=== PATIENT | male | born 1960 | race Caucasian/White ===

== ENCOUNTER 2019-09-13 19:22 | Inpatient (IN) | payer BC ==
[~2019-09-13] VITALS: Ht 177.8 cm; Wt 79.5 kg
[2019-09-13] MEDS ORDERED: normal saline 1000ML IV soln IVB ONE (20:30)
[2019-09-13] MEDS ORDERED: LIDOcaine 2% 10ml TOPICAL JELLY (Urojet) MM ONE (20:30)
[2019-09-13 20:51] LABS: CLARITY,URINE TURBID (Clear); COLOR,URINE RED (Yellow)
[2019-09-13 20:53] LABS: UA COLLECTION TYPE CLN CATCH MIDSTREAM
[2019-09-13 21:03] LABS: BACTERIA,URINE NONE SEEN /HPF (Neg); MUCUS STRANDS NONE SEEN /LPF (Neg); RBC,URINE TNTC /HPF (0-2); SQUAMOUS EPITHELIAL CELL,UR NONE SEEN /LPF (FEW); WBC,URINE 0-4 /HPF (0-4)
[2019-09-13 21:06] LABS: BASOPHILS # (AUTO) 0.1 X10'3 (0-0.2); BASOPHILS % (AUTO) 0.7 % (0-1); EOSINOPHILS # (AUTO) 0.2 X10'3 (0-0.9); EOSINOPHILS % (AUTO) 2.3 % (0-6); HEMATOCRIT 42.7 % (42.0-52.0); HEMOGLOBIN 14.7 g/dl (14.0-17.9); LYMPHOCYTES # (AUTO) 2.2 X10'3 (1.1-4.8); LYMPHOCYTES % (AUTO) 24.5 % (21-51); MEAN CORPUSCULAR HEMOGLOBIN 31.1 PG (27.0-31.0); MEAN CORPUSCULAR HGB CONC 34.3 g/dL (33.0-36.5); MEAN CORPUSCULAR VOLUME 90.7 FL (78-98); MONOCYTES # (AUTO) 0.8 X10'3 (0-0.9); MONOCYTES % (AUTO) 8.4 % (2-12); NEUTROPHILS # (AUTO) 5.9 X10'3 (1.8-7.7); NEUTROPHILS % (AUTO) 64.1 % (42-75); PLATELET COUNT 209 X10'3 (140-440); RED BLOOD COUNT 4.71 X10'6 (4.70-6.10); RED CELL DISTRIBUTION WIDTH 12.8 % (11.5-14.5); WHITE BLOOD COUNT 9.2 X10'3 (4.5-11.0)
[2019-09-13 21:12] LABS: PARTIAL THROMBOPLASTIN TIME 27 SECONDS (22-32)
[2019-09-13 21:14] LABS: ALANINE AMINOTRANSFERASE 20 U/L (12-78); ALBUMIN 3.8 G/DL (3.4-5.0); ALBUMIN/GLOBULIN RATIO 1.2 (1.1-1.5); ALKALINE PHOSPHATASE 79 IU/L (46-116); ANION GAP 8 (8-16); ASPARTATE AMINO TRANSFERASE 20 U/L (10-37); BILIRUBIN,TOTAL 0.3 MG/DL (0.1-1.0); BLOOD UREA NITROGEN 11 MG/DL (7-18); BUN/CREATININE RATIO 9.5 (5.4-32.0); CALCIUM 8.2 MG/DL (8.5-10.1); CHLORIDE 103 MMOL/L (99-107); CREATININE 1.16 MG/DL (0.60-1.10); GLUCOSE 78 MG/DL (70-104); SODIUM 140 MMOL/L (135-145); TOTAL CARBON DIOXIDE 29.1 MMOL/L (24-32); TOTAL PROTEIN 7.1 G/DL (6.4-8.2); eGFR 65 ML/MIN
[2019-09-13 21:18] LABS: POTASSIUM 4.1 MMOL/L (3.5-5.1)
--- NOTE | 2019-09-13 21:21 | NUR ---
Hamilton cath inserted per MD order using sterile technique. Procedure tolerated well by pt. Gross hematuria apparent.
[2019-09-13] MEDS ORDERED: iohexol 300mg/ml 100ml inj. ONE (21:22)
--- NOTE | 2019-09-13 21:36 | NUR ---
Pt. transferred to CT by transportation maintenance operator at this time.
--- NOTE | 2019-09-13 21:53 | NUR ---
relieving RN for break, pt is resting quietly on gurney,
[2019-09-13] MEDS ORDERED: NO HOME MEDS (22:58)
[2019-09-13 23:28] LABS: BETA HCG,QUANTITATIVE < 1.0 mIU/ml
[2019-09-14] VITALS (7 sets, daily range): BP systolic 81–162; BP diastolic 40–87
[2019-09-14] MEDS ORDERED: magnesium Cl slow-release 64mg tablet PO PRN (00:15)
[2019-09-14] MEDS ORDERED: HYDROcodone/acetaminophen 5mg/325mg tablet PO PRN (00:15)
[2019-09-14] MEDS ORDERED: magnesium 2GM in 50ml NS 50 ML IV PRN (00:15)
[2019-09-14] MEDS ORDERED: ondansetron/PF 4mg/2ml inj IV PRN ×2 (00:15→10:05)
[2019-09-14] MEDS ORDERED: morphine 2 MG/ML inj. syringe IV PRN ×2 (00:15)
[2019-09-14] MEDS ORDERED: magnesium hydroxide 30ml (MOM) UD suspension PO PRN (00:15)
[2019-09-14] MEDS ORDERED: acetaminophen 325mg tablet PO PRN (00:15)
[2019-09-14] MEDS ORDERED: magnesium 4gm in 100ml NS 100 ML IV PRN (00:15)
[2019-09-14] MEDS ORDERED: mag hydrox/Alum hydrox/simeth 30ml oral suspension PO PRN (00:15)
[2019-09-14] MEDS ORDERED: potassium CL 10mEq/100ml bag 100 ML IV PRN ×2 (00:15)
[2019-09-14] MEDS ORDERED: potassium Cl 20 mEq SR tablet PO PRN ×2 (00:15)
--- NOTE | 2019-09-14 06:38 | NUR ---
Problems reprioritized. Patient report given, questions answered & plan of care reviewed with Zhane ORTEGA.
[2019-09-14 06:44] LABS: BASOPHILS % (AUTO) 0.3 % (0-1); EOSINOPHILS # (AUTO) 0.2 X10'3 (0-0.9); EOSINOPHILS % (AUTO) 1.9 % (0-6); HEMATOCRIT 40.6 % (42.0-52.0); HEMOGLOBIN 14.3 g/dl (14.0-17.9); LYMPHOCYTES # (AUTO) 2.1 X10'3 (1.1-4.8); LYMPHOCYTES % (AUTO) 19.7 % (21-51); MEAN CORPUSCULAR HEMOGLOBIN 31.5 PG (27.0-31.0); MEAN CORPUSCULAR HGB CONC 35.2 g/dL (33.0-36.5); MEAN CORPUSCULAR VOLUME 89.6 FL (78-98); MEAN PLATELET VOLUME 8.9 FL (7.4-10.4); MONOCYTES # (AUTO) 0.8 X10'3 (0-0.9); MONOCYTES % (AUTO) 7.5 % (2-12); NEUTROPHILS # (AUTO) 7.6 X10'3 (1.8-7.7); NEUTROPHILS % (AUTO) 70.6 % (42-75); PLATELET COUNT 193 X10'3 (140-440); RED BLOOD COUNT 4.53 X10'6 (4.70-6.10); RED CELL DISTRIBUTION WIDTH 12.9 % (11.5-14.5); WHITE BLOOD COUNT 10.7 X10'3 (4.5-11.0)
[2019-09-14 07:00] LABS: ALBUMIN 3.5 G/DL (3.4-5.0); ANION GAP 9 (8-16); BLOOD UREA NITROGEN 11 MG/DL (7-18); BUN/CREATININE RATIO 10.7 (5.4-32.0); CALCIUM 8.2 MG/DL (8.5-10.1); CHLORIDE 105 MMOL/L (99-107); CREATININE 1.03 MG/DL (0.60-1.10); GLUCOSE 100 MG/DL (70-104); MAGNESIUM 1.9 MG/DL (1.5-2.4); POTASSIUM 3.7 MMOL/L (3.5-5.1); SODIUM 142 MMOL/L (135-145); TOTAL CARBON DIOXIDE 28.3 MMOL/L (24-32); eGFR 74 ML/MIN
[2019-09-14] MEDS ORDERED: normal saline 1000ml 1,000 ML IV SCH (07:20)
[2019-09-14] MEDS: K and/or MAG REPLACEMENT MC SCH (07:36)
--- NOTE | 2019-09-14 09:45 | NUR ---
pt taken to OR for procedure by Dr Blackwood. Dr Blackwood has answered all questions.
[2019-09-14] MEDS ORDERED: morphine 4 MG/ML inj SYRINge IV PRN ×2 (10:05)
[2019-09-14] MEDS ORDERED: meperidine/PF 25mg/ml syringe IV PRN ×3 (10:05)
[2019-09-14] MEDS ORDERED: proCHLORperazine 10 MG/2 ml inj IV PRN (10:05)
[2019-09-14] MEDS ORDERED: ringers solution, lacted 1,000 ML IV SCH (10:05)
[2019-09-14] MEDS ORDERED: MIDAZolam 5mg/5ml vial ONE (10:19)
[2019-09-14] MEDS ORDERED: fentaNYL/PF 50MCG/1 ML 2ML syringe ONE (10:19)
--- NOTE | 2019-09-14 10:30 | NUR ---
I have made changes and agree with Marilyn Espitia student nurse AM assessment. Timing wrong on assessment. Pt actual assessment time @ 0745.
--- NOTE | 2019-09-14 11:30 | NUR ---
Received from OR via MEDICAL BED, accompanied by Anesthesiologist DR. GARRIDO and report given by Anesthesiolgist. PT ARRIVED AWAKE ON RA. DENIES PAIN. MOVES UPPER EXT WNL, PULSES AND SALESPERSON PETS AND PET SUPPLIES WNL. SPINAL SENSATION AT [place] [address]A. [address] FC WITH CBI IN PLACE [place] COLORED OUTPUT.
--- NOTE | 2019-09-14 12:05 | NUR ---
Pt has arrived back from the OR, doing well, no new complaints. CBI running per orders.
--- NOTE | 2019-09-14 12:08 | NUR ---
Report called to receiving nurse LANE ORTEGA. Transferred via MEDICAL BED TO ROOM 340A WITH Belongings, TSHIRT LEFT ON EOB. CBI STILL LITE [place]. VSS ON RA. WAS NOT IN WAITING ROOM WHEN WENT TO GET HER 3RD FLOOR STAFF SAID THEY HAD SEEN HER NEAR HIS ROOM SINCE REPORT. Special Issues communicated to receiving nurse.
--- NOTE | 2019-09-14 18:06 | NUR ---
Problems reprioritized. Patient report given, questions answered & plan of care reviewed with PRUDENCE.
--- NOTE | 2019-09-14 18:37 | NUR ---
Patient in room [facility]. I have received report from Zhane ORTEGA and had the opportunity to ask questions and assume patient care. Patient is in no apparent distress.
[2019-09-15] VITALS: BP 133/75
--- NOTE | 2019-09-15 06:19 | NUR ---
Problems reprioritized. Patient report given, questions answered & plan of care reviewed with Anshul RN.
--- NOTE | 2019-09-15 06:30 | NUR ---
Patient in room [facility] 340. I have received report from Etelvina ORTEGA and had the opportunity to ask questions and assume patient care.
[2019-09-15 07:01] LABS: BASOPHILS % (AUTO) 0.1 % (0-1); EOSINOPHILS # (AUTO) 0.1 X10'3 (0-0.9); EOSINOPHILS % (AUTO) 0.7 % (0-6); HEMATOCRIT 39.1 % (42.0-52.0); HEMOGLOBIN 13.4 g/dl (14.0-17.9); LYMPHOCYTES # (AUTO) 1.8 X10'3 (1.1-4.8); LYMPHOCYTES % (AUTO) 13.4 % (21-51); MEAN CORPUSCULAR HEMOGLOBIN 30.8 PG (27.0-31.0); MEAN CORPUSCULAR HGB CONC 34.3 g/dL (33.0-36.5); MEAN CORPUSCULAR VOLUME 89.9 FL (78-98); MEAN PLATELET VOLUME 8.9 FL (7.4-10.4); MONOCYTES % (AUTO) 7.7 % (2-12); NEUTROPHILS # (AUTO) 10.5 X10'3 (1.8-7.7); NEUTROPHILS % (AUTO) 78.1 % (42-75); PLATELET COUNT 189 X10'3 (140-440); RED BLOOD COUNT 4.35 X10'6 (4.70-6.10); RED CELL DISTRIBUTION WIDTH 12.7 % (11.5-14.5); WHITE BLOOD COUNT 13.4 X10'3 (4.5-11.0)
[2019-09-15 07:06] LABS: ALBUMIN 3.2 G/DL (3.4-5.0); ANION GAP 6 (8-16); BLOOD UREA NITROGEN 10 MG/DL (7-18); BUN/CREATININE RATIO 9.4 (5.4-32.0); CALCIUM 7.8 MG/DL (8.5-10.1); CHLORIDE 105 MMOL/L (99-107); CREATININE 1.06 MG/DL (0.60-1.10); GLUCOSE 105 MG/DL (70-104); MAGNESIUM 1.7 MG/DL (1.5-2.4); POTASSIUM 3.9 MMOL/L (3.5-5.1); SODIUM 140 MMOL/L (135-145); TOTAL CARBON DIOXIDE 29.1 MMOL/L (24-32); eGFR 72 ML/MIN
[2019-09-15 08:00] VITALS: BP 129/75
[2019-09-15] MEDS: K and/or MAG REPLACEMENT MC SCH (08:00)
[2019-09-15 11:55] VITALS: BP 149/78
--- NOTE | 2019-09-15 17:10 | NUR ---
PATIENT DISHCARGED INTO THE CARE OF HIS FAMILY. PATIENT WAS EDUCATED ON CATHETER CARE AND TRANSITIONING BETWEEN NIGHT AND LEG BAG. PATIENT HAD NO NEW MEDICATIONS AFTER PROCEDURE. PATIENT INSTRUCTED TO FOLLOW UP WITH UROLOGIST IN 1 WEEKS TIME. PATIENT IV TAKEN OUT AT TIME OF DISCHARGE AND CANULA WAS WHOLE AND INTACT UPON REMOVAL.
[2019-09-16 08:09] LABS: % FREE PSA 26.9 % (.); PSA, FREE 1.48 ng/mL
== END 2019-09-15 17:05 | disposition home or self-care (01) | DRG 714 ==
LOC: ER 19:24 → ED HOLD 09-14 00:15 → SUR 3N 09-14 00:45
PROVIDERS: ADMIT Hospitalist; ATTEND Internal Medicine
PROC: 0T9B8ZZ Drainage of Bladder, Via Natural or Artificial Opening Endoscopic (ICD-10-PCS; 2019-09-14)
PROC: 0VB08ZZ Excision of Prostate, Via Natural or Artificial Opening Endoscopic (ICD-10-PCS; principal; 2019-09-14 10:11)
DX: N40.1 Benign prostatic hyperplasia with lower urinary tract symptoms (principal); R31.0 Gross hematuria; N32.89 Other specified disorders of bladder; R35.0 Frequency of micturition; Z88.0 Allergy status to penicillin
CPT/HCPCS: 99285; Z7506; Z7508; 36415; 74178; 80048; 80053; 81001; 83735; 84153; 84154; 84702; 85025; 85610; 85730; 87081; A4355; A4402; A4618; A6258; G0378; J2175; J2250; J2270; J3010; J7030; J7120; Q9967

== ENCOUNTER 2020-07-30 08:52 | Emergency (ER) | payer BC ==
[~2020-07-30] VITALS: Ht 177.8 cm; Wt 81.8 kg
[2020-07-30] MEDS ORDERED: acetaminophen 325mg tablet PO ONE (09:50)
[2020-07-30] MEDS ORDERED: ibuprofen tablet 400 MG TABLET PO ONE (10:10)
--- NOTE | 2020-07-30 10:10 | NUR ---
Spoke with Michelle ESPOSITO regarding patient having taken tylenol this morning at 0600 and if he wanted to switch medication to ibuprofen 400 mg PO once now and he agree. Will place verbal order and notify Neeru ORTEGA.
[2020-07-30 11:02] LABS: CLARITY,URINE CLEAR (Clear); COLOR,URINE YELLOW (Yellow); GLUCOSE, URINE NEGATIVE (Neg); KETONES,URINE TRACE mg/dl (Neg); LEUKOCYTE ESTERASE ,URINE NEGATIVE (Neg); NITRITES, URINE NEGATIVE (Neg); OCCULT BLOOD,URINE MODERATE (Neg); PH,URINE 5.5 (4.8-8.0); PROTEIN,URINE TRACE mg/dl (Neg); UROBILINOGEN,URINE 0.2 E.U/dL (0.2-1.0)
[2020-07-30 11:05] LABS: UA COLLECTION TYPE VOIDED
[2020-07-30 11:09] LABS: WBC,URINE 0-4 /HPF (0-4)
[2020-07-30 11:10] LABS: BACTERIA,URINE FEW /HPF (Neg); HYALINE CASTS 0-3 /LPF (NEGATIVE); MUCUS STRANDS NONE SEEN /LPF (Neg); RBC,URINE 0-2 /HPF (0-2); SQUAMOUS EPITHELIAL CELL,UR FEW /LPF (FEW)
[2020-07-30 11:38] VITALS: BP 110/80
== END 2020-07-30 11:38 | disposition home or self-care (01) ==
LOC: ER 08:53
DX: B34.9 Viral infection, unspecified (principal); R50.9 Fever, unspecified; R51.9 Headache, unspecified; Z20.828 Contact with and (suspected) exposure to other viral communicable diseases
CPT/HCPCS: 81001; 87635; 99283; C9803

== ENCOUNTER 2020-08-01 07:51 | Emergency (ER) | payer BC ==
[~2020-08-01] VITALS: Ht 177.8 cm; Wt 79.5 kg
[2020-08-01] MEDS ORDERED: acetaminophen 325mg tablet PO ONE (08:15)
[2020-08-01] MEDS ORDERED: normal saline 1000ML IV soln IV ONE (08:25)
[2020-08-01 09:01] LABS: BASOPHILS % (AUTO) 0.2 % (0-1); EOSINOPHILS % (AUTO) 0 % (0-6); HEMATOCRIT 40.5 % (42.0-52.0); HEMOGLOBIN 14.4 g/dl (14.0-17.9); LYMPHOCYTES # (AUTO) 0.5 X10'3 (1.1-4.8); LYMPHOCYTES % (AUTO) 5.6 % (21-51); MEAN CORPUSCULAR HEMOGLOBIN 30.7 PG (27.0-31.0); MEAN CORPUSCULAR HGB CONC 35.5 g/dL (33.0-36.5); MEAN CORPUSCULAR VOLUME 86.4 FL (78-98); MEAN PLATELET VOLUME 8.2 FL (7.4-10.4); MONOCYTES # (AUTO) 0.8 X10'3 (0-0.9); MONOCYTES % (AUTO) 8.9 % (2-12); NEUTROPHILS # (AUTO) 7.5 X10'3 (1.8-7.7); NEUTROPHILS % (AUTO) 85.3 % (42-75); PLATELET COUNT 192 X10'3 (140-440); RED BLOOD COUNT 4.69 X10'6 (4.70-6.10); RED CELL DISTRIBUTION WIDTH 13.3 % (11.5-14.5); WHITE BLOOD COUNT 8.8 X10'3 (4.5-11.0)
--- NOTE | 2020-08-01 09:03 | NUR ---
Pt given urinal.
[2020-08-01 09:13] LABS: ALANINE AMINOTRANSFERASE 76 U/L (12-78); ALBUMIN/GLOBULIN RATIO 0.7 (1.1-1.5); ALKALINE PHOSPHATASE 90 IU/L (46-116); ANION GAP 11 (8-16); ASPARTATE AMINO TRANSFERASE 119 U/L (10-37); BILIRUBIN,TOTAL 0.9 MG/DL (0.1-1.0); BLOOD UREA NITROGEN 20 MG/DL (7-18); BUN/CREATININE RATIO 14.1 (5.4-32.0); CALCIUM 8.4 MG/DL (8.5-10.1); CHLORIDE 94 MMOL/L (99-107); CREATININE 1.42 MG/DL (0.60-1.10); GLUCOSE 123 MG/DL (70-104); POTASSIUM 3.2 MMOL/L (3.5-5.1); SODIUM 131 MMOL/L (135-145); TOTAL CARBON DIOXIDE 25.8 MMOL/L (24-32); TOTAL PROTEIN 7.4 G/DL (6.4-8.2); eGFR 51 ML/MIN
[2020-08-01] MEDS ORDERED: azithromycin/NS 500mg/250ml 250 ML IV ONE (09:35)
[2020-08-01] MEDS ORDERED: CefTRIAXone/D5W-Rocephin 1gm 50 ML IV ONE (09:35)
[2020-08-01] MEDS ORDERED: DOXY-135 PO (10:09)
--- NOTE | 2020-08-01 10:29 | NUR ---
PT'S CALLED, SPOKE WITH DR ROBERTS AND INFORMED HER THAT PT WAS DX WITH PNA. INFORMED THAT PT WILL BE RECEIVING 2 ABX AND WILL BE READY TO COME HOME IN APPROX 2 HRS, STATED UNDERSTANDING AND WILL BE HERE TO PICK HIM UP AT APPROX 1230 THIS AFTERNOON
[2020-08-01 11:10] LABS: CLARITY,URINE CLEAR (Clear); COLOR,URINE YELLOW (Yellow); GLUCOSE, URINE NEGATIVE (Neg); KETONES,URINE NEGATIVE (Neg); LEUKOCYTE ESTERASE ,URINE NEGATIVE (Neg); NITRITES, URINE NEGATIVE (Neg); OCCULT BLOOD,URINE LARGE (Neg); PH,URINE 5.5 (4.8-8.0); PROTEIN,URINE 30 mg/dl (Neg)
[2020-08-01 11:20] LABS: UA COLLECTION TYPE URINAL
[2020-08-01 11:21] LABS: BACTERIA,URINE NONE SEEN /HPF (Neg); MUCUS STRANDS FEW /LPF (Neg); SQUAMOUS EPITHELIAL CELL,UR FEW /LPF (FEW); WBC,URINE 0-4 /HPF (0-4)
[2020-08-01 12:20] VITALS: BP 126/93
== END 2020-08-01 12:22 | disposition home or self-care (01) ==
LOC: ER 07:52
DX: J18.9 Pneumonia, unspecified organism (principal); R51.9 Headache, unspecified; R19.7 Diarrhea, unspecified; R50.9 Fever, unspecified; Z72.89 Other problems related to lifestyle; Z79.2 Long term (current) use of antibiotics
CPT/HCPCS: 36415; 71045; 80053; 81001; 83605; 83735; 84145; 85025; 87040; 87502; 87503; 93005; 96361; 96365; 96368; 99285; J0456; J0696; J7030